=== PATIENT | male | born 1935 | race Caucasian/White ===

== ENCOUNTER 2017-02-07 15:39 | Emergency (ER) | payer MEDICARE ==
[2017-02-07] MEDS ORDERED: Acetaminophen 650 MG/20.3 ML UDCUP ONE (17:01)
[2017-02-07] MEDS ORDERED: Diazepam 5 MG TAB ONE (17:01)
[2017-02-07] MEDS ORDERED: Acetaminophen/Codeine 30-300mg Tablet ONE (17:04)
[2017-02-07 18:12] LABS: #Lymphocytes 1.1 thou/uL (1.20-3.40); #Monocytes 0.5 thou/uL (0.11-0.59); %Basophils 0.5 % (0.0-1.0); %Eosinophils 0.4 % (0.0-10.0); %Lymphocytes 12.9 % (21.0-51.0); %Monocytes 5.6 % (0.0-10.0); Anisocytosis MODERATE=16-30 cells (100X) (0-5/hpf); Elliptocytes MODERATE= 6-15 cells (100X) (0-1/hpf); Hematocrit 37.7 % (42.0-52.0); Hypochromia SLIGHT = 6-15 cells (100X) (0-5/hpf); Macrocytosis SLIGHT = 6-15 cells (100X) (0-5/hpf); Mean Platelet Volume 9.5 fL (7.4-10.4); Microcytosis SLIGHT = 6-15 cells (100X) (0-5/hpf); Red Blood Cell (RBC) Count 4.26 mill/uL (4.70-6.10); Tear Drops SLIGHT = 2-5 cells (100X) (0-1/hpf); White Blood Cell (WBC) Count 8.7 thou/uL (4.8-10.8)
[2017-02-07 18:19] LABS: ALT (SGPT) 18 U/L (8-55); AST (SGOT) 19 U/L (5-34); Alkaline Phosphatase 90 U/L (40-150); Anion Gap 16 mmol/L (10-20); BUN (Urea Nitrogen) 7 mg/dL (8.4-25.7); Bilirubin, Total 0.7 mg/dL (0.2-1.2); Calc. Creatinine Clearance 0 mL/min (70-130); Calcium 9.2 mg/dL (7.8-10.44); Carbon Dioxide 26 mmol/L (23-31); Chloride 100 mmol/L (98-107); Estimated GFR-MDRD Greater than 90; Globulin 2.9 g/dL (2.4-3.5); Protein, Total 6.4 g/dL (5.8-8.1)
== END 2017-02-07 18:55 | disposition home or self-care (01) ==
LOC: SCSER 15:39
DX: M54.2 Cervicalgia (principal); R45.1 Restlessness and agitation; I25.2 Old myocardial infarction; E11.9 Type 2 diabetes mellitus without complications; E78.5 Hyperlipidemia, unspecified; I10 Essential (primary) hypertension; F03.90 Unspecified dementia, unspecified severity, without behavioral disturbance, psychotic disturbance, mood disturbance, and anxiety; K57.90 Diverticulosis of intestine, part unspecified, without perforation or abscess without bleeding; W19.XXXA Unspecified fall, initial encounter
CPT/HCPCS: 80053; 85025; 99283

== ENCOUNTER 2017-02-15 10:34 | Outpatient (CLI) | payer MEDICARE ==
--- NOTE | 2017-02-15 12:17 | RAD ---
CERVICAL SPINE THREE VIEWS: Technique: AP, lateral, and open mouth odontoid views of the cervical spine. 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 There is diffuse bridging osteophytes throughout the cervical spine. The nondisplaced odontoid fracture is difficult to visualize due to the osteopenia. The alignment is not significantly displaced since the previous CT from 01-30-17. IMPRESSION: Nondisplacement of the odontoid fracture. POS: [facility]
== END 2017-02-15 10:35 | disposition home or self-care (01) ==
LOC: TBSIIMAG 10:34
PROVIDERS: ATTEND Physician Assistant
DX: M54.2 Cervicalgia (principal); I82.409 Acute embolism and thrombosis of unspecified deep veins of unspecified lower extremity; S12.112A Nondisplaced Type II dens fracture, initial encounter for closed fracture
CPT/HCPCS: 72040

== ENCOUNTER 2017-03-23 13:46 | Outpatient (CLI) | payer MEDICARE ==
--- NOTE | 2017-03-23 15:10 | RAD ---
CERVICAL SPINE RADIOGRAPHS THREE VIEWS: 03/23/2017 PROVIDED CLINICAL HISTORY: Neck pain. COMPARISON: 02/15/2017 FINDINGS: Known odontoid fracture demonstrates no radiographic change. Cervical alignment is unchanged. Verte bral body heights appear unchanged. The visualized lung apices appear clear. No prevertebral soft t issue swelling is evident. IMPRESSION: Stable radiographic appearance of the cervical spine. POS: [facility]
== END 2017-03-23 13:47 | disposition home or self-care (01) ==
LOC: TBSIIMAG 13:46
PROVIDERS: ATTEND Neurological Surgery
DX: S12.9XXA Fracture of neck, unspecified, initial encounter (principal)
CPT/HCPCS: 72040

== ENCOUNTER 2017-04-21 10:01 | Outpatient (CLI) | payer MEDICARE ==
--- NOTE | 2017-04-21 11:35 | RAD ---
CERVICAL SPINE THREE VIEWS: Comparison: 03-23-17 History: Follow up exam. Patient fell in bathtub. Neck fracture. Technique: AP, lateral, and open mouth views of the cervical spine are submitted for interpretation. FINDINGS: There is no prevertebral soft tissue swelling. There is diffuse bone demineralization and extensive f usion of the cervical spine, unchanged. Irregularity involving the C2 vertebral body is noted. Evalua tion of odontoid process fracture is limited on this exam. New fractures are not appreciated. Predent al spaces appear to be normal. There is mild leftward curvature on the AP and open mouth projection w hich may be due cervical collar. IMPRESSION: Limited evaluation of the cervical spine. 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 If there is concern for fracture, CT is recommended given the overall limited nature of the radiographs that are submitte d for interpretation. POS: [facility]
== END 2017-04-21 10:02 | disposition home or self-care (01) ==
LOC: TBSIIMAG 10:01
PROVIDERS: ATTEND Neurological Surgery
DX: S12.9XXA Fracture of neck, unspecified, initial encounter (principal); M43.22 Fusion of spine, cervical region
CPT/HCPCS: 72040

== ENCOUNTER 2017-05-25 06:20 | Day surgery (SDC) | payer MEDICARE ==
[2017-05-24 11:25] VITALS: BMI 25.8
--- NOTE | 2017-05-25 10:00 | OP ---
DATE OF PROCEDURE: 05/25/2017 PROCEDURE: Colonoscopy with biopsy. PREOPERATIVE DIAGNOSES: Chronic diarrhea and fecal incontinence PROCEDURE IN DETAIL: Informed consent was obtained from the patient. He was sedated with total intr avenous anesthesia. The colonoscope was advanced to the terminal ileum without difficulty. The muco sa of the terminal ileum was normal. The preparation quality was good. The ileocecal valve and appe ndiceal orifice were clearly identified. There was severe diverticulosis throughout the colon. Ther e was a 1.5 cm lipoma in the distal transverse colon. Random biopsies were taken from the colon to r ule out microscopic colitis. Retroflexed views of the rectum were normal. IMPRESSION: 1. Severe diverticulosis throughout the colon. 2. Lipoma in the distal transverse colon. 3. Random colon biopsies were taken to rule out microscopic colitis. 4. His diarrhea and loss of continence sounded to be more related to his dementia. The stools are n ot so much runny as he has frequent urgency and whenever he feels to need to pass gas, he thinks he h as to have a bowel movement. The first step in treatment at this point will be to bulk the stool wit h fiber to try to improve regularity and continence. RECOMMENDATIONS: 1. Citrucel one tablespoon daily. 2. Follow up in [facility] Clinic. 3. Await histopathology.
[2017-05-25] MEDS ORDERED: Lidocaine 1% PF 5 ML VIAL ONE (16:44)
[2017-05-25] MEDS ORDERED: PROPOFOL 200 MG/20 ML VIAL ONE (16:44)
== END 2017-05-25 10:26 | disposition home or self-care (01) ==
LOC: SDC 06:20
PROVIDERS: ATTEND Internal Medicine Gastroenterology
PROC: 0DBE8ZX Excision of Large Intestine, Via Natural or Artificial Opening Endoscopic, Diagnostic (ICD-10-PCS; principal; 2017-05-25)
DX: K57.30 Diverticulosis of large intestine without perforation or abscess without bleeding (principal); D17.5 Benign lipomatous neoplasm of intra-abdominal organs; K52.9 Noninfective gastroenteritis and colitis, unspecified; R15.9 Full incontinence of feces; E78.5 Hyperlipidemia, unspecified; I25.2 Old myocardial infarction; I11.0 Hypertensive heart disease with heart failure; I50.9 Heart failure, unspecified; E11.9 Type 2 diabetes mellitus without complications; M19.90 Unspecified osteoarthritis, unspecified site; Z86.73 Personal history of transient ischemic attack (TIA), and cerebral infarction without residual deficits; Z91.040 Latex allergy status; Z79.01 Long term (current) use of anticoagulants; Z79.899 Other long term (current) drug therapy
CPT/HCPCS: 88305; J2001; J2704

== ENCOUNTER 2017-06-16 14:26 | Outpatient (CLI) | payer MEDICARE ==
--- NOTE | 2017-06-16 15:40 | RAD ---
CERVICAL SPINE SERIES 3 VIEWS: Date: 06/16/17 COMPARISON: 04/21/17 study. HISTORY: Left-sided neck pain, unable to tilt chin down. FINDINGS: Bones are demineralized. The irregularity of C2 and difficulty in visualizing the odontoid are simila r to the prior exam. I do not see any change in alignment. Ankylosis across the entire cervical spine is seen with ankylosis both of the anterior as well as posterior elements with fusion across the fac et joints. No prevertebral soft tissue swelling or other findings. IMPRESSION: Stable exam. POS: [facility]
== END 2017-06-16 14:27 | disposition home or self-care (01) ==
LOC: TBSIIMAG 14:26
PROVIDERS: ATTEND Neurological Surgery
DX: S12.9XXA Fracture of neck, unspecified, initial encounter (principal)
CPT/HCPCS: 72040